=== PATIENT | male | born 1970 ===

== ENCOUNTER → 2023-12-15 13:02 | Outpatient (REF) | payer BC, SELFPAY ==
--- NOTE | 2023-12-15 14:22 | CARDSERVLU ---
Echocardiogram with Lumason completed after protocol screening completed. Allergies verified.
Patent IV site: left antecubital 22 G PC, rapid blood return
IV site flushed with 0.9% NaCl pre and post administration.
Diluted bolus method utilized to enhance visualization of ventricular mcallister.
Total volume given: _4___ mL
Patient tolerated all procedures well without complications.
Heplock D/C ed at 1418, site clear, no redness, no edema. Pressure held, no bleeding. 2x2 applied and taped. Pt offers no complaints.
== END ==
LOC: RCS 13:02
PROVIDERS: ATTENDING PHYSICIAN Internal Medicine Cardiovascular Disease; FAMILY PHYSICIAN Internal Medicine
DX: I21.3 ST elevation (STEMI) myocardial infarction of unspecified site (principal)
CPT/HCPCS: 93308; 93321; 93325; Q9950

== ENCOUNTER → 2025-04-26 13:36 | Outpatient (REF) | payer BC, SELFPAY | LOC: HWRCS 13:36 | PROVIDERS: ATTENDING PHYSICIAN Student in an Organized Health Care Education/Training Program; FAMILY PHYSICIAN Internal Medicine | DX: I25.5 Ischemic cardiomyopathy (principal) | CPT/HCPCS: 93306 ==